=== PATIENT | female | born 1980 | race Caucasian/White ===

== ENCOUNTER → 2016-05-01 | Outpatient (REF) | payer OTHER | LOC: M LAB REF 17:20 | PROVIDERS: ATTEND Physician Assistant | DX: R30.0 Dysuria (principal) ==

== ENCOUNTER → 2016-08-06 | Outpatient (CLI) | payer OTHER | LOC: M SMT 13:33 | PROVIDERS: ATTEND Family Medicine | DX: Z13.29 Encounter for screening for other suspected endocrine disorder (principal) ==